=== PATIENT | female | born 1970 | race Caucasian/White ===

== ENCOUNTER → 2016-10-15 | Outpatient (CLI) | payer BC | LOC: COL.RAD 07:07 | DX: R10.2 Pelvic and perineal pain (principal) ==

== ENCOUNTER → 2017-05-12 | Outpatient (CLI) | payer BC | LOC: MC.RAD 07:47 | DX: Z12.31 Encounter for screening mammogram for malignant neoplasm of breast (principal) ==

== ENCOUNTER → 2018-06-20 | Outpatient (CLI) | payer BC | LOC: MC.RAD 15:08 | DX: Z12.31 Encounter for screening mammogram for malignant neoplasm of breast (principal) ==

== ENCOUNTER → 2019-08-16 | Outpatient (CLI) | payer BC | LOC: MC.RAD 09:00 | DX: Z12.31 Encounter for screening mammogram for malignant neoplasm of breast (principal); Z01.419 Encounter for gynecological examination (general) (routine) without abnormal findings ==

== ENCOUNTER → 2021-02-27 | Outpatient (CLI) | payer BC | LOC: MC.RAD 07:24 | DX: Z12.31 Encounter for screening mammogram for malignant neoplasm of breast (principal); R87.622 Low grade squamous intraepithelial lesion on cytologic smear of vagina (LGSIL) ==

== ENCOUNTER → 2024-03-21 | Outpatient (CLI) | payer BC | LOC: MC.RAD 10:45 | DX: Z12.31 Encounter for screening mammogram for malignant neoplasm of breast (principal); Z01.419 Encounter for gynecological examination (general) (routine) without abnormal findings ==